=== PATIENT | female | born 1985 | race Caucasian/White ===

== ENCOUNTER 2023-12-17 08:31 | Emergency (ER) | payer MEDICAID ==
[~2023-12-17] VITALS: Ht 157.5 cm; Wt 71.7 kg
[2023-12-17 08:33] VITALS: BP 118/77; PULSE 92; RESP 14; TEMP 98.2; O2SAT 99
[2023-12-17] MEDS: KETOROLAC 30 MG/ML VIAL IM ONE (09:54)
[2023-12-17] MEDS: predniSONE 20 MG TAB PO ONE (09:54)
[2023-12-17] MEDS: GABAPENTIN 300 MG CAP PO ONE (09:55)
[2023-12-17] MEDS ORDERED: PRED20TA5 PO (10:07)
[2023-12-17] MEDS ORDERED: METH-1681 PO (10:07)
[2023-12-17] MEDS ORDERED: IBUP-2213 PO (10:07)
[2023-12-17 10:37] VITALS: BP 110/77; PULSE 86; RESP 16; TEMP 98; O2SAT 99
== END 2023-12-17 10:39 | disposition home or self-care (01) ==
LOC: MED 08:31
DX: M54.32 Sciatica, left side (principal); Z79.899 Other long term (current) drug therapy
CPT/HCPCS: 81002; 81025; 96372; 99283; J1885; J7512

== ENCOUNTER 2024-01-26 20:01 | Emergency (ER) | payer MEDICAID ==
[~2024-01-26] VITALS: Ht 162.6 cm; Wt 68.0 kg
[~2024-01-26 20:01] MED LIST: IBUP-2213 PO; METH-1681 PO; PRED20TA5 PO
[2024-01-26 20:26] VITALS: BP 131/89; PULSE 82; RESP 18; TEMP 98.3; O2SAT 100
[2024-01-26] MEDS: NACL 0.9% 1,000 ML IV ONE (21:47)
[2024-01-26] MEDS: diphenhydrAMINE 50 MG/ML VIAL IVP ONE (22:04)
[2024-01-26] MEDS: METOCLOPRAMIDE 10 MG/2 ML INJ VIAL IVP ONE (22:06)
[2024-01-26] MEDS: KETOROLAC 30 MG/ML VIAL IVP ONE (22:53)
[2024-01-26] MEDS: ONDANSETRON 4 MG/2 ML VIAL IVP ONE (23:25)
[2024-01-26] MEDS: MORPHINE SULFATE 4 MG/ML SYR IVP ONE (23:31)
[2024-01-27] MEDS: MORPHINE SULFATE 4 MG/ML SYR IVP ONE (00:24)
[2024-01-27] MEDS ORDERED: ONDA8TAB87 PO (00:25)
[2024-01-27] MEDS ORDERED: ACET-8905 PO (00:25)
[2024-01-27] MEDS ORDERED: IBUP-2213 PO (00:25)
[2024-01-27 00:30] VITALS: BP 107/71; PULSE 66; RESP 13; TEMP 98; O2SAT 100
== END 2024-01-27 00:31 | disposition home or self-care (01) ==
LOC: MED 20:01
DX: R51.9 Headache, unspecified (principal); R11.0 Nausea; M54.2 Cervicalgia; Z79.899 Other long term (current) drug therapy
CPT/HCPCS: 81002; 81025; 96361; 96374; 96375; 96376; 99284; J1200; J1885; J2270; J2405; J2765; J7030